=== PATIENT | female | born 1965 | race Two or more races ===

== ENCOUNTER 2024-07-29 09:07 | Outpatient (RCR) | payer MEDICARE, MEDICAID, SELFPAY ==
--- NOTE | 2024-07-29 10:57 | CTCFLWUP_ITS ---
[facility] [address] [place], [place] [address] FOLLOW-UP NOTE Date: 07/29/2024 MR#: [id number] Name: MEHDI GARCIA : 1965 Dx: C82.94 Identification. Patient with stage I follicular lymphoma received 3240 cGy right axilla completed . PET scan posttreatment 12/16/2021 showed disappearance of right axillary metabolic lymphadenopathy. T here was nonspecific pulmonary nodule right upper lobe. CT scan November 1723 revealed a 13 mm right thyroid nodule with ultrasound 01/04/2024 revealing bilatera l thyroid nodules and lower pole of the right thyroid and FNA recommended. FNA of right lower thyroid nodule 1.6 cm 04/14/2024 revealed [place] category 3 atypia of undetermine d significance. PET scan 06/26/2024 showed no interval active or recurrent tumor. Examined the patient in the neck and axillary region were unremarkable today. Assessment #1 History of stage I follicular lymphoma right axilla. Complete response after radiation with no recurrence nearly 3 years radiographically and clinically. #2. Right thyroid nodule FNA [place] category 3 atypia of unknown significance. #3. Pt and family present comfortable with continued observation to both sites. #4 I will see her again in 6 months time.. Cc: Vy Mercedes MD Electronically signed by: Marvel Pickard M.D. 07/29/2024 10:54 AM
== END 2024-08-26 23:59 | disposition home or self-care (01) ==
LOC: SCTC 09:07
PROVIDERS: PCP Internal Medicine; Referring Provider Internal Medicine; Visit Provider Radiology Therapeutic Radiology
DX: Z08 Encounter for follow-up examination after completed treatment for malignant neoplasm (principal); Z85.72 Personal history of non-Hodgkin lymphomas; Z92.3 Personal history of irradiation; E04.1 Nontoxic single thyroid nodule
CPT/HCPCS: 99213; G0463

== ENCOUNTER → 2024-12-04 | Outpatient (CLI) | payer MEDICARE, MEDICAID, SELFPAY ==
[2024-12-04 08:05] LABS: Collection Type, Urine Clean Catch
[2024-12-04 08:39] LABS: Basophils # (Auto) 0.1 Thou/mm3 (0.0-0.2); Basophils % (Auto) 1 % (0-2.5); Eosinophils # (Auto) 0.1 Thou/mm3 (0.0-0.5); Eosinophils % (Auto) 2 % (0-10); Hematocrit 36.4 % (36.0-46.0); Hemoglobin 12.5 g/dL (12.0-16.0); Immature Granulocytes % (Auto) 0 % (0-0); Immature Granulocytes Auto 0.02 Thou/mm3 (0.00-0.00); Lymphocytes # (Auto) 1.5 Thou/mm3 (1.0-4.8); Lymphocytes % (Auto) 27 % (10-50); Mean Corpuscular HGB Conc 34.3 g/dl (31.0-37.0); Mean Corpuscular Hemoglobin 28.4 pg (25.0-35.0); Mean Corpuscular Volume 83 fL (80-100); Monocytes # (Auto) 0.5 Thou/mm3 (0.0-0.8); Monocytes % (Auto) 8 % (0-12); Neutrophils # (Auto) 3.4 Thou/mm3 (1.8-7.7); Neutrophils % (Auto) 61 % (37-80); Nucleated Red Blood Cell % 0 /100 WBC (0); Platelet Count 227 Thou/mm3 (140-440); RDW Standard Deviation 39.9 fL (36.4-46.3); White Blood Count 5.6 Thou/mm3 (3.6-11.0)
[2024-12-04 08:50] LABS: Bacteria,Urine Rare; Bilirubin,Urine Negative (Negative); Blood,Urine Negative (Negative); Clarity,Urine Clear (Clear/Hazy); Color,Urine Yellow (Lt Yel-Yel); Glucose, Urine Negative (Negative); Ketones,Urine Negative (Negative); Leukocyte Esterase,Urine Positive (Negative); Nitrite,Urine Negative (Negative); Protein,Urine Negative (Neg - Trace); RBC,Urine 6 /hpf (0-3); Specific Gravity,Urine 1.021 (1.001-1.035); Squamous Epithelial Cell,Urine 3 /hpf (0-5); Urobilinogen,Urine Negative mg/dL (0.0-1.0); WBC,Urine 15 /hpf (0-5)
[2024-12-04 08:51] LABS: Alanine Aminotransferase 10 U/L (10-49); Albumin, Serum 4.2 gm/dL (3.4-4.8); Albumin/Globulin Ratio 1.7 (1.2-2.2); Alkaline Phosphatase 78 U/L (46-116); Anion Gap 7 (7-16); Aspartate Amino Transferase 15 U/L (0-34); BUN/Creatinine Ratio 23 Ratio (12-20); Bilirubin,Total 1.7 mg/dL (0.3-1.2); Blood Urea Nitrogen 14 mg/dL (9-23); Calcium 9.2 mg/dL (8.3-10.6); Calcium (Corrected) 9.2 mg/dL (8.5-10.1); Carbon Dioxide 31.2 mMol/L (20.0-31.0); Cardiac Risk Estimate 2.6 RATIO (3.7-5.6); Chloride 106 mMol/L (98-107); Cholesterol 122 mg/dL (132-200); Creatinine (Component) 0.6 mg/dL (0.6-1.3); Globulin 2.5 gm/dL (2.3-3.5); Glucose 113 mg/dL (74-106); HDL Cholesterol 47 mg/dL (40-60); LDL Cholesterol,Calculated 43 mg/dL (0-130); Osmolality,Calculated 288 (275-295); Potassium 3.9 mMol/L (3.4-5.1); Sodium 144 mMol/L (136-145); Thyroid Stimulating Hormone 1.57 uIU/mL (0.55-4.78); Total Protein 6.7 gm/dL (5.7-8.2); Triglycerides 159 mg/dL (30-150); Uric Acid 4.9 mg/dL (3.1-7.8); eGFR > 60 See Note
[2024-12-04 09:03] LABS: Vitamin B12 > 2000 pg/mL (211-911); Vitamin D 25 Hydroxy Total 33.7 ng/mL (7.3-40.2)
== END | disposition home or self-care (01) ==
PROVIDERS: PCP Internal Medicine; Referring Provider Internal Medicine; Visit Provider Internal Medicine
DX: E11.9 Type 2 diabetes mellitus without complications (principal); E78.5 Hyperlipidemia, unspecified; I10 Essential (primary) hypertension; D51.9 Vitamin B12 deficiency anemia, unspecified; E55.9 Vitamin D deficiency, unspecified
CPT/HCPCS: 36415; 80053; 80061; 81001; 82306; 82607; 84443; 84550; 85025

== ENCOUNTER 2025-01-27 07:55 | Outpatient (RCR) | payer MEDICARE, MEDICAID, SELFPAY ==
--- NOTE | 2025-01-27 08:56 | CTCFLWUP_ITS ---
[facility] [address] [place], [place] [address] FOLLOW-UP NOTE Date: 01/27/2025 MR#: [id number] Name: MEHDI GARCIA : 1965 Dx: C82.94 Follicular lymphoma Identification. The patient with stage I follicular Phoma received 30-40 centigrade the right axilla completed 11/11/2021. PET scan posttreatment 12/16/2021 showed disappearance of right axillary metabolic lymphadenopathy. There was nonspecific pulmonary nodule right upper lobe. CT scan November 1723 revealed 13 mm right thyroid nodule with ultrasound 01/04/2024 revealing bilateral thyroid nodules in lower pole of the right thyroid and FNA recommend FNA right lower thyroid nodule 1.6 cm 04/14/2024 revealed [place] category 3 atypia of undetermined significance. PET scan 06/26/2024 showing NO interval active or recurrent tumor. Assessment #1 history of stage I follicular lymphoma right axilla. Complete response after radiation therapy with no recurrence over 3 years radiographically and clinically. #2. right thyroid nodule FNA [place] category 3 atypia of unknown significance. #3. Will recheck ultrasound of the neck prior to next visit #4. Follow-up in 6 months. Electronically signed by: Marvel Pickard M.D. 01/27/2025 8:54 AM
== END 2025-02-23 23:59 | disposition home or self-care (01) ==
LOC: SCTC 07:55
PROVIDERS: PCP Internal Medicine; Referring Provider Internal Medicine; Visit Provider Radiology Therapeutic Radiology
DX: Z08 Encounter for follow-up examination after completed treatment for malignant neoplasm (principal); Z85.72 Personal history of non-Hodgkin lymphomas; Z92.3 Personal history of irradiation; E04.1 Nontoxic single thyroid nodule
CPT/HCPCS: 99212; G0463

== ENCOUNTER → 2025-02-19 | Outpatient (CLI) | payer MEDICARE, MEDICAID, SELFPAY ==
--- NOTE | 2025-02-19 11:00 | XR_ITS ---
Examination: Thyroid sonography complete TECHNIQUE: Grayscale sonographic images thyroid lobes Date and time: February 19, 2025 0944 hours INDICATIONS: Diagnosis follicular lymphoma FINDINGS: Right thyroid 5.0 cm Midpole vascular nodule 2.0 x 1.3 cm Lower pole nodule 5 x 6 mm Lower pole cyst 5 x 4 mm Left thyroid 4.2 cm Upper pole nodule 8 x 6 mm IMPRESSION: Bilateral thyroid nodules as above Consider ultrasound-guided fine-needle aspiration of the midpole vascular right thyroid nodule 2.0 x 1.3 x 1.1 cm
== END | disposition home or self-care (01) ==
PROVIDERS: PCP Internal Medicine; Referring Provider Radiology Therapeutic Radiology; Visit Provider Radiology Therapeutic Radiology
DX: E04.2 Nontoxic multinodular goiter (principal)
CPT/HCPCS: 76536

== ENCOUNTER → 2025-05-21 | Outpatient (CLI) | payer MEDICARE, MEDICAID, SELFPAY ==
[2025-05-21 09:56] LABS: Glucose Estimated Average 140 mg/dL (80-131); Hemoglobin A1C 6.5 % Hgb (4.8-6.0)
[2025-05-21 10:02] LABS: Creatinine,Random Urine 111 mg/dL (30-125)
[2025-05-21 10:17] LABS: Alanine Aminotransferase 15 U/L (10-49); Albumin, Serum 4.1 gm/dL (3.4-4.8); Albumin/Globulin Ratio 2.2 (1.2-2.2); Alkaline Phosphatase 71 U/L (46-116); Anion Gap 13 (7-16); Aspartate Amino Transferase 17 U/L (0-34); BUN/Creatinine Ratio 27 Ratio (12-20); Bilirubin,Total 1.7 mg/dL (0.3-1.2); Blood Urea Nitrogen 16 mg/dL (9-23); Calcium 8.8 mg/dL (8.3-10.6); Calcium (Corrected) 8.8 mg/dL (8.5-10.1); Carbon Dioxide 28.1 mMol/L (20.0-31.0); Cardiac Risk Estimate 2.3 RATIO (3.7-5.6); Chloride 104 mMol/L (98-107); Cholesterol 110 mg/dL (132-200); Creatinine (Component) 0.6 mg/dL (0.6-1.3); Globulin 1.9 gm/dL (2.3-3.5); Glucose 129 mg/dL (74-106); HDL Cholesterol 48 mg/dL (40-60); LDL Cholesterol,Calculated 29 mg/dL (0-130); Osmolality,Calculated 291 (275-295); Potassium 3.6 mMol/L (3.4-5.1); Sodium 145 mMol/L (136-145); Total Protein 6.0 gm/dL (5.7-8.2); Triglycerides 165 mg/dL (30-150); eGFR > 60 See Note
== END | disposition home or self-care (01) ==
LOC: COPL 08:53
PROVIDERS: PCP Internal Medicine; Referring Provider Internal Medicine; Visit Provider Internal Medicine
DX: E11.9 Type 2 diabetes mellitus without complications (principal); I10 Essential (primary) hypertension; E78.5 Hyperlipidemia, unspecified
CPT/HCPCS: 36415; 80053; 80061; 82570; 83036

== ENCOUNTER 2025-07-29 09:29 | Outpatient (RCR) | payer MEDICARE, MEDICAID, SELFPAY ==
--- NOTE | 2025-07-29 10:22 | CTCFLWUP_ITS ---
[facility] [address] [place], [place] [address] FOLLOW-UP NOTE Date: 07/29/2025 MR#: [id number] Name: MEHDI GARCIA : 1965 Dx: C82.94 Identification. Patient who had 3240 cGy to the right axilla for stage I follicular lymphoma completed 11/11/2021. Posttreatment PET 12/16/2021 showed complete disappearance of the right axillary metabolic Lymphadenopathy. There was nonspecific pulmonary nodule right upper lobe. CT scan November 1723 revealed 13 mm right thyroid nodule with ultrasound 01/04/2024 revealing bilateral thyroid nodules in the lower pole of the right thyroid and FNA recommended. FNA right lower thyroid nodule 1.6 cm 04/14/2024 revealed [place] category 3 atypia of undetermined significance. Ultrasound of 02/19/2025 revealed thyroid nodules, with right thyroid nodule previously biopsied appears to have grown. As I examine her axillary region in the right axilla appears to be slightly more tender than previously but does not feel like a recurrent malignancy. A#1. History of stage I follicular lymphoma right axilla complete response with XRT completed 11/11/2021. A#2. Posttreatment PET 12/17/2022 showed no active cancer and hypermetabolic right axillary lymphadenopathy was no longer identified. A#3. Repeat PET will be ordered at this time. A#4. Persistence of right thyroid nodule, prior biopsy nondiagnostic. A#5 Told patient with daughter present to. bring this up with primary care provider, Dr. Mercedes as this is not related to her lymphoma cancer., Cc: Vy Mercedes MD Electronically signed by: Marvel Pickard M.D. 07/29/2025 10:20 AM
== END 2025-08-26 23:59 | disposition home or self-care (01) ==
LOC: SCTC 09:29
PROVIDERS: PCP Internal Medicine; Referring Provider Internal Medicine; Visit Provider Radiology Therapeutic Radiology
DX: Z08 Encounter for follow-up examination after completed treatment for malignant neoplasm (principal); Z85.72 Personal history of non-Hodgkin lymphomas; Z92.3 Personal history of irradiation; E04.2 Nontoxic multinodular goiter
CPT/HCPCS: 99213; G0463

== ENCOUNTER → 2025-08-17 | Outpatient (CLI) | payer MEDICARE, MEDICAID, SELFPAY ==
--- NOTE | 2025-08-17 14:00 | XR_ITS ---
EXAMINATION: PET/CT FUSION SKULL TO THIGH EXAM DATE AND TIME: August 17, 2025, 1429 hours, comparison PET/CT scan June 26, 2024 INDICATIONS: Diagnosis follicular lymphoma post treatment CTDI:vol (mGy) 6.72 DLP: (mGycm) 569 PROCEDURE: 10.57 mCi FDG was administered intravenously To allow for distribution and uptake of radiotracer, the patient was allowed to rest quietly in a shielded room. Imaging was performed on an integrated 16-slice PET/CT scanner, with scanning from the skull base to the mid thigh. Serum blood glucose at the time of the injection was measured 116 mg/dL. CT scanning was performed without oral or intravenous contrast material. FINDINGS: Head and Neck: There is no shawnee hypermetabolism in the neck. The visualized portions of the brain are normal in appearance on CT. Chest: 10 mm hypermetabolic left axillary lymph node Abdomen and Pelvis: There is no sh[place] hypermetabolism in retroperitoneal or pelvic chains. The spleen is normal in size and FDG avidity. Musculoskeletal: Marrow uptake is within normal range. IMPRESSION: 10 mm interval hypermetabolic left axillary lymph node
== END | disposition home or self-care (01) ==
LOC: CDIM 13:26
PROVIDERS: PCP Internal Medicine; Referring Provider Radiology Therapeutic Radiology; Visit Provider Radiology Therapeutic Radiology
DX: R59.0 Localized enlarged lymph nodes (principal); C82.94 Follicular lymphoma, unspecified, lymph nodes of axilla and upper limb
CPT/HCPCS: 78815; A9552